=== PATIENT | female | born 1980 ===

== ENCOUNTER → 2018-03-05 | Outpatient (CLI) | payer OTHER ==
--- NOTE | 2018-03-05 09:56 | MR ---
EXAMINATION TYPE: MR ankle LT wo con DATE OF EXAM: 03/05/2018 COMPARISON: NONE HISTORY: 38-year-old female Left ankle and foot pain and swelling TECHNIQUE: Multiplanar, multisequence images of the left ankle were obtained without IV contrast. FINDINGS: There is moderate focal cartilage irregularity with a mild subchondral marrow signal changes along th e mid anterior distal tibial articular surface. No discrete osteochondral lesion is seen. The cartila ge injury measures approximately 3 x 5 mm. Otherwise, evaluation of the osseous structures shows an os trigonum. Prominent vascular remnants at the angle of the calcaneus. No bone marrow edema or suspicious bone marrow replacement. There is a cutaneous lesion measuring 1.4 x 1.3 cm along the medial plantar aspect of the midfoot jason wing heterogeneous high T2 signal suggestive of a cutaneous lesion which should be correlated with di rect inspection. Subtalar joint is aligned. Preserved signal within the sinus Tarsi. The tarsal tunnel is clear. Achilles tendon smoothly delineated. The plantar fascia is intact. The syndesmosis and anterior extensor tendons appear satisfactory. There is appearance of a short segment split tear measuring approximately 1.5 to 2 cm long involving the inframalleolar peroneus longus as it courses beyond the peroneal tubercle, refer to axial image 1 0 and 11 series 301. No retracted tear. The ATFL is not well delineated. There is soft tissue swellin g and thickening at the fibular attachment. The CFL and ATFL appear largely intact. There is the appearance of a short segment partial tear of the inframalleolar posterior tibial tendon just below the level of the malleolus, refer to axial image 18 and coronal image 20. No retracted te ar. Associated mild tenosynovial fluid. Otherwise, medial flexor tendons are intact. There is some th ickening of the deltoid ligament with loss of normal fibrillar appearance suggesting old injury. IMPRESSION: 1. Poor delineation to the ATFL with some soft tissue swelling near the fibular attachment. Findings suggest subacute or chronic tear. 2. A 1.5 to 2 cm long split tear of the inframalleolar peroneus longus as it courses just beyond the peroneal tubercle. 3. Appearance of a short segment partial tear of the posterior tibial tendon just below the level of the malleolus. Associated mild tenosynovitis. No retracted tendon tears. 4. Focal chondral injury (approximately 3 x 5 mm) along the anterior mid tibial articular surface of the ankle joint. 5. A 1.5 cm exophytic cutaneous lesion along the medial plantar midfoot. Correlate with direct inspec tion.
== END | disposition home or self-care (01) ==
LOC: RADMRIMAIN 06:10
PROVIDERS: ATTEND Orthopaedic Surgery
DX: S86.812A Strain of other muscle(s) and tendon(s) at lower leg level, left leg, initial encounter (principal); S99.812A Other specified injuries of left ankle, initial encounter; M65.9 Synovitis and tenosynovitis, unspecified; L98.8 Other specified disorders of the skin and subcutaneous tissue; S82.832D Other fracture of upper and lower end of left fibula, subsequent encounter for closed fracture with routine healing